=== PATIENT | male | born 1975 | race Caucasian/White ===

== ENCOUNTER 2017-02-01 05:35 | Inpatient (IN) | payer BC ==
[~2017-02-01 05:35] MED LIST: Dextrose 5%-Lactated Ringers 1,000 ML IV SCH; Ropivacaine 60 ML, Dexamethasone 8 MG, EPINEPHrine 0.4 MG, Sodium Chloride 0.9% 17.6 ML NERVRT SCH
[2017-02-01] MEDS ORDERED: Celecoxib 200 MG Cap PO ONE (06:30)
[2017-02-01] MEDS ORDERED: cefOXitin 2 GM in Sodium Chloride 0.9% 50 ML IV ONE (06:30)
[2017-02-01] MEDS ORDERED: Acetaminophen 500 MG Tab PO ONE (06:30)
[2017-02-01] MEDS ORDERED: Gabapentin 300 MG Cap PO ONE (06:30)
[2017-02-01] MEDS ORDERED: Scopolamine 1.5 MG Transdermal Patch TOP SCH (06:30)
[2017-02-01] MEDS ORDERED: cefOXitin 2 GM Vial ONE (06:43)
[2017-02-01] MEDS ORDERED: Albuterol/Ipratropium 3.0-0.5 MG/3 ML Neb Soln NEB ONE (07:13)
[2017-02-01] MEDS ORDERED: Succinylcholine 200 MG/10 ML MDV ONE (07:14)
[2017-02-01] MEDS ORDERED: Glycopyrrolate 0.2 MG/ML 5 ML MDV ONE (07:14)
[2017-02-01] MEDS ORDERED: Ondansetron 4 MG/2 ML SDV ONE (07:14)
[2017-02-01] MEDS ORDERED: Rocuronium 50 MG/5 ML Vial ONE (07:14)
[2017-02-01] MEDS ORDERED: Lactated Ringers 1,000 ML ONE (07:14)
[2017-02-01] MEDS ORDERED: Neostigmine Methylsulfate 1 MG/ML 5 ML Syringe ONE (07:14)
[2017-02-01] MEDS ORDERED: Propofol 200 MG/20 ML SDV ONE (07:14)
[2017-02-01] MEDS ORDERED: Dexamethasone 4 MG/ML SDV ONE (07:14)
[2017-02-01] MEDS ORDERED: Lidocaine 0.4%/D5W 2 GM/500 ML BAG IV SCH (07:30)
[2017-02-01] MEDS ORDERED: Ketamine 500 MG/5 ML MDV IV ONE (07:30)
[2017-02-01] MEDS ORDERED: Lidocaine 2% 100 MG/5 ML Syringe IVPUSH ONE (07:30)
[2017-02-01] MEDS ORDERED: Labetalol 20 MG/4 ML Syringe ONE (09:33)
[2017-02-01] MEDS ORDERED: fentaNYL 100 MCG/2 ML SDV IVPUSH ONE (10:30)
[2017-02-01] MEDS ORDERED: hydrOXYzine HCl 100 MG/2 ML SDV IM ONE (11:14)
[2017-02-01] MEDS ORDERED: Meperidine PF 100 MG/ML Syringe IM ONE (11:14)
[2017-02-01] MEDS ORDERED: hydrOXYzine HCl 100 MG/2 ML SDV IM PRN (12:00)
[2017-02-01] MEDS ORDERED: Ondansetron 4 MG/2 ML SDV IVPUSH PRN (12:00)
[2017-02-01] MEDS ORDERED: diphenhydrAMINE 50 MG/ML SDV IVPUSH PRN (12:00)
[2017-02-01] MEDS ORDERED: Metoclopramide 10 MG/2 ML SDV IVPUSH PRN (12:00)
[2017-02-01] MEDS ORDERED: Labetalol 20 MG/4 ML Syringe IVPUSH PRN (12:00)
[2017-02-01] MEDS: Dextrose 5%-Lactated Ringers 1,000 ML IV SCH ×2 (12:59→23:30)
[2017-02-01] MEDS: Loratadine 10 MG Tab.DIS PO SCH (13:04)
[2017-02-01] MEDS: cefOXitin 2 GM in Sodium Chloride 0.9% 50 ML IV SCH ×2 (13:15→20:22)
[2017-02-01] MEDS: Gabapentin 250 MG/5 ML Solution ML 470 ML Bottle PO SCH ×2 (13:17→21:20)
[2017-02-01] MEDS ORDERED: Pantoprazole 40 MG Vial IVPUSH SCH (14:00)
[2017-02-01] MEDS ORDERED: MVI, Adult with Vitamin K 10 ML, Thiamine 200 MG, Chromium/Copper/Mang/Selen/Zn 1 ML in... IV SCH ×4 (16:00)
[2017-02-01] MEDS: Heparin Sodium 5,000 Units/ML Vial SUBCUT SCH ×2 (16:10→23:31)
[2017-02-01] MEDS: Acetaminophen Soln 650 MG/20.3 ML UD Cup PO SCH ×2 (16:11→21:20)
[2017-02-01] MEDS: HYDROmorphone 1 MG/ML Syringe IVPUSH PRN (22:22)
[2017-02-02] MEDS: cefOXitin 2 GM in Sodium Chloride 0.9% 50 ML IV SCH (02:04)
[2017-02-02] MEDS ORDERED: Iohexol 647 MG/ML 50 ML SDV PO STA (03:49)
[2017-02-02] MEDS: Acetaminophen Soln 650 MG/20.3 ML UD Cup PO SCH ×4 (03:54→21:20)
[2017-02-02] MEDS: Dextrose 5%-Lactated Ringers 1,000 ML IV SCH (05:42)
[2017-02-02] MEDS: Celecoxib 200 MG Cap PO SCH (07:32)
[2017-02-02] MEDS: Heparin Sodium 5,000 Units/ML Vial SUBCUT SCH ×3 (07:32→23:06)
[2017-02-02] MEDS ORDERED: Dextrose 5%-Lactated Ringers 1,000 ML IV SCH (07:34)
[2017-02-02] MEDS ORDERED: [UNRECOGNIZED DRUG - OTHER] PO PRN (07:36)
[2017-02-02] MEDS ORDERED: CHOLESTYRAMINE 4 GM PO PRN (07:36)
[2017-02-02] MEDS ORDERED: Cholestyramine/Sucrose Powder 4 GM Packet PO PRN (07:40)
[2017-02-02] MEDS: SCOPOLAMINE PATCH CHECK TOP SCH (08:35)
[2017-02-02] MEDS: Gabapentin 250 MG/5 ML Solution ML 470 ML Bottle PO SCH ×3 (08:41→21:19)
[2017-02-02] MEDS: Loratadine 10 MG Tab.DIS PO SCH (08:41)
--- NOTE | 2017-02-02 08:54 | CR ---
UGI wo KUB HISTORY: eval RY GBP FINDINGS: After administration of oral contrast, upright views were obtained. Post operative changes gastric bypass. Surgical drains in place. No evidence for leak. Contrast passes freely into proximal small bowel loops. IMPRESSION: No evidence for leak or obstruction.
--- NOTE | 2017-02-02 09:13 | PN ---
DATE OF SERVICE: 02/02/2017 SUBJECTIVE: Julian is postop day 1 following a sleeve gastrectomy. His upper GI this morning was normal. He has been up ambulating. He did have some postop pain in the recovery room, received Vistaril and Demerol, and received IV Dilaudid once after he got up to the floor. He states now his pain is controlled. He is voiding without any difficulty. REVIEW OF SYSTEMS: Remainder of review of systems negative for any pertinent positives and negatives. OBJECTIVE: GENERAL: Julian Freitas is a 41-year-old male. He is alert and orientated. VITAL SIGNS: TPR 97.3, 59, 16. Blood pressure 129/60. HEENT: Negative. NECK: Supple. HEART: Regular rate and rhythm. LUNGS: Clear. ABDOMEN: Dressing dry and intact. PETEY drain has put out 165 of a light red drainage. Abdominal binder has been on. EXTREMITIES: Without peripheral edema. SCDs are on. ASSESSMENT: Diagnostic laparoscopic sleeve gastrectomy, liver biopsy, repair of diaphragmatic hernia for morbid obesity, hepatomegaly, and periesophageal diaphragmatic hernia. Date of surgery 02/01/2017; Edwar Lainez M.D., surgeon. PLAN: 1. Step-2 without cereal gastric bypass diet. 2. Decrease IV to 100 mL per hour. 3. Dressing off, may shower. 4. Questran packets 4 g p.o. daily p.r.n. He will ask for them if he needs them. He has been on that for chronic diarrhea after his gallbladder surgery. 5. Prevacid 30 mg p.o. before breakfast. 6. Good pulmonary toilet encouraged. 7. To drink 3 small med cups every hourly. 8. We will evaluate p.r.n. or in the a.m. Vandana Roman PA-C /[id number]
[2017-02-02] MEDS: HYDROmorphone 1 MG/ML Syringe IVPUSH PRN ×2 (09:38→21:20)
[2017-02-02] MEDS: Lansoprazole 30 MG Orally Disintegrating Tab.CR PO SCH (10:43)
[2017-02-02] MEDS ORDERED: MVI, Adult with Vitamin K 10 ML, Thiamine 200 MG, Chromium/Copper/Mang/Selen/Zn 1 ML in... IV SCH ×4 (16:00)
[2017-02-03] MEDS: Acetaminophen Soln 650 MG/20.3 ML UD Cup PO SCH ×2 (04:13→09:44)
[2017-02-03] MEDS: Celecoxib 200 MG Cap PO SCH (07:37)
[2017-02-03] MEDS: Heparin Sodium 5,000 Units/ML Vial SUBCUT SCH (07:37)
[2017-02-03] MEDS: Lansoprazole 30 MG Orally Disintegrating Tab.CR PO SCH (07:37)
[2017-02-03] MEDS: Gabapentin 250 MG/5 ML Solution ML 470 ML Bottle PO SCH (08:48)
[2017-02-03] MEDS: SCOPOLAMINE PATCH CHECK TOP SCH (08:49)
[2017-02-03] MEDS: Loratadine 10 MG Tab.DIS PO SCH (08:49)
[2017-02-03] MEDS ORDERED: Cyanocobalamin (Vitamin B12) 1,000 MCG/ML SDV IM ONE (09:00)
[2017-02-03] MEDS ORDERED: Cephalexin 250 MG/5 ML Susp 100 ML Bottle PO SCH (10:00)
[2017-02-03] MEDS ORDERED: Magnesium Hydroxide 400 MG/5 ML Susp 30 ML Cup PO ONE (11:11)
--- NOTE | 2017-02-03 22:47 | DISCH ---
ADMISSION DIAGNOSES: 1. Morbid obesity, BMI 56.4. 2. Sleep apnea. 3. Chronic diarrhea secondary to cholecystectomy. DISCHARGE DIAGNOSES: 1. Laparoscopic sleeve gastrectomy, liver biopsy repair, diaphragmatic hernia for morbid obesity, hepatomegaly, and paraesophageal diaphragmatic hernia. Date of surgery 02/01/2017. Edwar Lainez MD, surgeon. 2. Infiltration of IV, right hand. HISTORY: Julian Freitas is a 41-year-old male with longstanding history of morbid obesity. After preoperative evaluation and discussion of possible risks and possible complications, he wished to proceed with surgical procedure. Right hand; red, swollen, warm, and it has extended about 3 inches above his wrist. HOSPITAL COURSE: Julian had a surgery on 02/01/2017. On postop day #1, his upper GI was normal. He was started on a step-2 gastric bypass diet without cereal. His pain was well managed. His activity was good. He had dietary instruction and was ready to be discharged to home on postop day #2, without any complications. PHYSICAL EXAMINATION: GENERAL: Julian Freitas is a 41-year-old male. He is alert and orientated. VITAL SIGNS: Height is 6 feet, weight is 416 pounds, BMI is 56.4. TPR 97.8, 61, 16, blood pressure 136/64. HEENT: Negative. NECK: Supple. HEART: Regular rate and rhythm. LUNGS: Clear. ABDOMEN: Incisions look good. Sutures intact and extremities without peripheral edema. DISPOSITION: Discharged to home. CONDITION: Stable and improving. FOLLOWUP: Followup appointment with Vandana Roman PA-C, on 02/10/2017 at 11:00 a.m. HOME MEDICATIONS: 1. Cephalexin 250 mg/5 mL. He is to take 10 mL q.6 hours for 10 days. 2. Tylenol 650 mg p.o. q.12 hours. 3. Dilaudid 2 mg q.4 hours p.r.n. pain #20. 4. Milk of magnesia 30 mL two were sent home with the patient to take 1 daily. 5. Questran powder take as directed if he would start to have a lot of diarrhea. DIET: Step-2 gastric bypass diet without cereal for 30 days. ACTIVITY: No lifting greater than 10 pounds for 2 weeks[address] Driving, do not drive on pain medication. Shower/bathing, may shower. Wound incision care, keep operative site clean and dry. Wear abdominal binder for 2 weeks and then as tolerated. Notify provider if any fever, increased pain, nausea, or vomiting. SPECIAL INSTRUCTIONS: 1. Use incentive spirometer 10 times every hour while awake for 2 weeks. 2. Keep a record of fluid and protein intake and bring to clinic appointments. 3. Stressed with the patient the importance of staying on a step-2 gastric bypass diet without cereal for 30 days to avoid getting a leak.
--- NOTE | 2017-02-04 15:20 | OR ---
DATE OF PROCEDURE: 02/01/2017 PREOPERATIVE DIAGNOSIS: Morbid obesity. POSTOPERATIVE DIAGNOSES: 1. Morbid obesity. 2. Marked hepatomegaly. 3. Paraesophageal diaphragmatic hernia. OPERATIVE PROCEDURES: 1. Laparoscopic sleeve gastrectomy (10547). 2. Carl-Cut needle liver biopsy (10440). 3. Repair of paraesophageal diaphragmatic hernia with mesh (80677). ANESTHESIA: General. HOME THEATRE TECHNICIAN: Vandana Roman PA-C. INDICATION FOR PROCEDURE: This is a 41-year-old male presenting with longstanding morbid obesity and increasingly significant comorbidities. After preoperative evaluation and discussion, he wished to proceed with a sleeve gastrectomy. Potential risks including bleeding, infection, leaks from the staple line, as well as possibility of cardiopulmonary, septic, or hemorrhagic complications leading to were discussed, and the patient wishes to proceed. DETAILS OF PROCEDURE: The patient was taken to the operating room and placed in a supine position. After general endotracheal anesthesia was induced, he was converted to a lithotomy position. Using continuous ultrasound guidance, bilateral subcostal transversus abdominis plane blocks were placed using the standard solution. Following this, the abdomen was prepped and draped. At 15 cm inferior and 5 cm left of xiphoid process, a transverse incision was made and the peritoneal cavity entered under direct vision with an Optiview trocar and inflated to 15 mmHg with CO2. Laparoscope was then reinserted. No underlying trocar insertion site injuries were seen. Following this, 5 additional trocars were placed across the upper and mid abdomen, and general exploration was undertaken. The patient was noted to have a quite large liver, which was grossly fatty infiltrated. Carl-Cut needle biopsies were obtained from left lobe of liver. Minimal bleeding from the biopsy sites was controlled with electrocautery. The liver was then retracted anteriorly. The patient was noted to have a fairly significant hiatal hernia. This had a major paraesophageal component to it with prolapse of some perigastric fat and some gastric fundus in a plane anterior to the course of esophagus. This was then reduced, and the peritoneum overlying it incised and reflected downward. This then allowed dissection on each side of the esophagus away from the crura, and then the retroesophageal window was established. The esophagus was then dissected free from some remaining soft tissue attachments until it had a roughly 4 to 5 cm intraabdominal esophageal length. A posterior crural repair was then accomplished with a series of 0 Ethibond sutures reinforced with PTFE pledgets. Some Phasix mesh was then also used to place over the crural repair and alongside the esophagus, roughly care home up the side along the crura, to facilitate more dense scar formation at the diaphragmatic hernia repair site. This mesh was fixed in place with some titanium tacking screws. At this point, attention was then taken to division of the omentum away from the greater curvature of the stomach. This began in the mid-greater curvature and then continued proximally through the short gastric vessels including the highest and posterior short gastric vessels. The areolar tissues along the area of the left jonny were then further dissected away from the stomach allowing that area to be completely freed up of any attachments. The division of the omentum then continued distally to a point roughly 2 cm proximal to the pylorus. At this point, the initial staple line for the sleeve gastrectomy across the antrum underneath the incisura angularis and to the left of that was then mapped out with electrocautery with care taken to avoid overtightening of the incisura angularis. The staple line then began roughly 3 cm proximal to the pylorus and the first 3 firings with standard black loads. Following this then, a 32-Indonesian tube was then placed for anesthesia and manipulated into the antrum and then pulled up alongside the lesser curvature. Suction was then applied to this allowing the tube to be pulled up snuggly against the lesser curvature of the stomach. The staple line was then completed with additional firings of reinforced black and reinforced purple loads. At that point, the gastrectomy was completed. The staple line was then inspected and appeared to be intact throughout. Additional sutures were not felt to be necessary. The area was then coated with fibrin sealant, focusing on the distalmost, as well as proximalmost ends of the staple line, and the omentum was then pulled up alongside of this as well and then fixed in position with some 3-0 Vicryl stitch placed, keeping the omentum along the entire length of the sleeve gastrectomy staple line. With the tube now taken off suction and the gastrectomy staple line submerged with antibiotic-containing saline solution, and the duodenum being compressed, air was injected, providing a tight distention of the gastrectomy. No bleeding or air leaks were seen. The catheter was then removed. A single Giles-Villareal drain was then placed along the esophagogastric junction and from there up into the splenic fossa, and the sleeve gastrectomy specimen was delivered from the field. At that point, no further problems were noted. Trocars were removed, and the peritoneal cavity deflated. The incisions were closed with 4-0 Vicryl skin stitch and drains affixed with 4-0 Vicryl stitch as well. The patient was taken to the recovery room in a satisfactory condition. Physician paralegal assistant, Vandana Roman, played an essential role in assisting in this case, helping to position the patient, retract structures as needed, as well as suturing and cutting sutures when indicated. Her presence improved patient safety and decreased the operative time. Edwar Lainez MD /[id number]
== END 2017-02-03 11:45 | disposition home or self-care (01) | DRG 403 ==
LOC: JP.SDS 05:35 → JP.MS 07:30 → EDSTATUS 07:30 → JP.2SS 10:00
PROVIDERS: ADMIT Surgery; ATTEND Surgery
PROC: 0DB64Z3 Excision of Stomach, Percutaneous Endoscopic Approach, Vertical (ICD-10-PCS; principal; 2017-02-01)
PROC: 0FB24ZX Excision of Left Lobe Liver, Percutaneous Endoscopic Approach, Diagnostic (ICD-10-PCS; 2017-02-01)
PROC: 0BQT4ZZ Repair Diaphragm, Percutaneous Endoscopic Approach (ICD-10-PCS; 2017-02-01)
DX: E66.01 Morbid (severe) obesity due to excess calories (principal); Z68.43 Body mass index [BMI] 50.0-59.9, adult; K44.9 Diaphragmatic hernia without obstruction or gangrene; R16.0 Hepatomegaly, not elsewhere classified; G47.30 Sleep apnea, unspecified; F17.220 Nicotine dependence, chewing tobacco, uncomplicated; F17.211 Nicotine dependence, cigarettes, in remission
CPT/HCPCS: 36415; 74240; 74240-26; 80053; 83735; 84100; 86850; 86900; 86901; 88307; 88313; 94762; A9270-GY; C1781; C9113; J0171; J0330; J0694; J1100; J1170; J1644; J2001; J2175; J2405; J2704; J2710; J2795; J3010; J3410; J3411; J3420; J7030; J7040; J7042; J7050; J7120; J7620; Q9967